=== PATIENT | male | born 1980 | race Caucasian/White ===

== ENCOUNTER 2017-02-10 03:42 | Emergency (ER) | payer MEDICAID, OTHER ==
[2017-02-10 04:05] VITALS: BP 149/100
--- NOTE | 2017-02-11 08:56 | ER ---
DATE SEEN: 02/10/2017 TIME SEEN: The patient was seen at 0421 hours. CHIEF COMPLAINT: "I feel dizzy, woozy, mild left upper quadrant abdominal discomfort." No vomiting, diarrhea, fever, or recent cough. The patient has mild left flank pain, which is quite vague and left anterior upper abdominal discomfort, which also is vague. "I'm not feeling well." The patient was dropped off to ED for further evaluation by someone who drove away. The patient is a poor historian. He is mildly agitated and has difficulty with maintaining a cognitive thread of conversation. He is quite restless, cooperative, not abusive, not aggressive, not obnoxious or offensive. PHYSICAL EXAMINATION: HEENT: PERRLA intact. Eyes, 4 down to 3 mm. Hearing is intact. Pharynx without abnormality except mucosa is mildly dry. NECK: Supple. No thyromegaly or masses in the neck. No cervical adenopathy. LUNGS: Clear to auscultation. HEART: S1, S2. No murmur. ABDOMEN: Soft. No guarding. No rebound. VITAL SIGNS: Has mild tachycardia, heart rate 110, blood pressure 149/100, respirations 22, oxygen saturation 99%, and temperature 36.7 degrees centigrade. MUSCULOSKELETAL: The patient is somewhat asthenic. He has less subcutaneous fat. No needle douglass noted. No signs of inflammation, or signs of infection in the upper and lower extremities. No back pain. No hip or upper or lower extremity joint pain. DERM: No linear angiitis of the dermis. No rashes noted. LABORATORY DATA: Urine drug screen: Methamphetamine, MDMA , and marijuana noted. Glucose 133, otherwise automated chemistry is intact. CMP was normal except for mild elevation of reactive glucose 143, alkaline phosphatase 49. ASSESSMENT: Drug abuse. Agitation, "wooziness" tiredness, not feeling well secondary to methamphetamine, MDMA use and marijuana. The patient dismissed to follow up with doctor as needed, otherwise in a week. He was dropped off at the hospital, and consequently, he will need to go home by cab or other arrangements. /[id number] CHERELLE/MATTIE MAI
== END 2017-02-10 06:54 | disposition home or self-care (01) ==
LOC: FB.ED 03:42
DX: F19.10 Other psychoactive substance abuse, uncomplicated (principal); R45.1 Restlessness and agitation
CPT/HCPCS: 36415; 80053; 80305; 81001; 86140; 87040; 99284

== ENCOUNTER 2017-03-11 06:24 | Emergency (ER) | payer SELFPAY ==
[2017-03-11] MEDS ORDERED: Ketorolac 60 MG/2 ML SDV IM ONE (06:31)
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
[2017-03-11] MEDS ORDERED: HYDROmorphone 2 MG/ML SDV IM ONE (08:07)
[2017-03-11] MEDS ORDERED: Ondansetron 4 MG Tab.DIS PO PRN (08:12)
[2017-03-11 09:07] VITALS: BP 115/87
--- NOTE | 2017-03-11 11:24 | CR ---
INDICATION: Fall, complains of pain. RIGHT SHOULDER COMPLETE: Three views of the right shoulder were obtained and revealed what appears to be an acute oblique fracture through the distal portion of the mid shaft of the right clavicle with cranial angulation at the fracture site. This is a new finding compared with 01/02/2017 chest x-ray. No other bone or joint abnormality was identified. Report was called to Rad[facility] in ER for Dr. Otto at 1033 hours, 03/11/2017. SERGEI
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
== END 2017-03-11 08:30 | disposition home or self-care (01) ==
LOC: FB.ED 06:24
DX: S42.021A Displaced fracture of shaft of right clavicle, initial encounter for closed fracture (principal); F19.10 Other psychoactive substance abuse, uncomplicated; F60.9 Personality disorder, unspecified; H54.7 Unspecified visual loss; R68.3 Clubbing of fingers; J44.9 Chronic obstructive pulmonary disease, unspecified; F17.200 Nicotine dependence, unspecified, uncomplicated; F12.20 Cannabis dependence, uncomplicated; F15.20 Other stimulant dependence, uncomplicated; J45.909 Unspecified asthma, uncomplicated; Z88.0 Allergy status to penicillin; Z98.890 Other specified postprocedural states; V19.9XXA Pedal cyclist (driver) (passenger) injured in unspecified traffic accident, initial encounter
CPT/HCPCS: 73030; 96372; 99283; A9270; J1170; J1885

== ENCOUNTER 2017-03-15 17:20 | Emergency (ER) | payer SELFPAY ==
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
[2017-03-15 17:57] VITALS: BP 132/78
[2017-03-15 18:29] LABS: ACETAMINOPHEN < 10 ug/mL (10-30)
== END 2017-03-15 19:30 | disposition home or self-care (01) ==
LOC: FB.ED 17:20
DX: T52.8X1A Toxic effect of other organic solvents, accidental (unintentional), initial encounter (principal); E86.0 Dehydration; F17.210 Nicotine dependence, cigarettes, uncomplicated; Z88.0 Allergy status to penicillin; Z79.82 Long term (current) use of aspirin; Z79.899 Other long term (current) drug therapy
CPT/HCPCS: 36415; 80053; 85025; 99284; G0480

== ENCOUNTER 2023-04-07 23:15 | Emergency (ER) | payer MEDICAID ==
[2023-04-07] MEDS: Albuterol/Ipratropium 3.0-0.5 MG/3 ML Neb Soln NEB ONE (23:34)
[2023-04-07] MEDS: methylPREDNISolone Acetate 40 MG/ML SDV IM ONE (23:40)
[2023-04-08 00:05] VITALS: BP 119/79; PULSE 118
== END 2023-04-07 23:51 ==
LOC: FB.ED 23:15
DX: J45.901 Unspecified asthma with (acute) exacerbation (principal); Z88.0 Allergy status to penicillin; Z79.899 Other long term (current) drug therapy
CPT/HCPCS: 94640; 96372; 99285; J1030; J7620

== ENCOUNTER 2023-07-23 20:51 | Emergency (ER) | payer MEDICAID ==
[2023-07-23 21:12] VITALS: BP 153/102; PULSE 119
[2023-07-23] MEDS: Sodium Chloride 0.9% 1,000 ML IV ONE (21:30)
[2023-07-23] MEDS: Ondansetron 4 MG/2 ML SDV IVPUSH ONE (21:30)
[2023-07-23 21:46] LABS: BASOPHILS ABSOLUTE AUTO 0.1 x10-3/uL (0.0-0.3); BASOPHILS PERCENT AUTO 1.1 % (0.3-3.8); EOSINOPHILS ABSOLUTE AUTO 0.3 x10-3/uL (0.0-0.6); EOSINOPHILS PERCENT AUTO 5.9 % (0.1-6.8); HEMATOCRIT 40.9 % (38.3-50.1); HEMOGLOBIN 13.9 g/dL (12.9-17.7); LYMPHOCYTES ABSOLUTE AUTO 1.4 x10-3/uL (0.5-4.5); LYMPHOCYTES PERCENT AUTO 24.9 % (15.8-45.3); MEAN CORPUSCULAR HEMOGLOBIN 31.2 pg (27.0-33.3); MEAN CORPUSCULAR VOLUME 91.6 fL (80.8-98.7); MONOCYTES ABSOLUTE AUTO 0.7 x10-3/uL (0.0-1.2); MONOCYTES PERCENT AUTO 11.7 % (5.5-15.2); NEUTROPHILS ABSOLUTE AUTO 3.2 x10-3/uL (1.7-6.9); NEUTROPHILS PERCENT AUTO 56.4 % (40.3-71.8); PLATELET COUNT,PLT 302 x10(3)uL (117-477); RED BLOOD CELL COUNT 4.47 x10(6)uL (3.90-5.90); RED CELL DISTRIBUTION WIDTH 14.4 % (12.4-15.0); WHITE BLOOD CELL COUNT,WBC 5.7 x10-3/uL (3.2-10.1)
[2023-07-23 21:50] LABS: BLOOD UREA NITROGEN,BUN 12 mg/dL (7-18); CARBON DIOXIDE,CO2 30 mmol/L (21-32); CHLORIDE,CL 102 mmol/L (100-110); CREATININE 1.2 mg/dL (0.70-1.30); EST CRCL DRUG DOSING (CG) 80.19 mL/min; ESTIMATED GFR 77 mL/min (>60); GLUCOSE RANDOM 106 mg/dL (80-116); SODIUM,NA 138 mmol/L (135-145)
[2023-07-23 21:55] LABS: ALANINE AMINOTRANSFERASE,ALT 29 U/L (12-36); ALBUMIN 3.5 g/dL (3.5-5.2); ALKALINE PHOSPHATASE 113 IU/L (56-112); ASPARTATE AMNIOTRANSFERASE,AST 26 IU/L (5-25); BILIRUBIN TOTAL 0.2 mg/dL (0.1-1.3); MAGNESIUM 1.7 mg/dL (1.8-2.5)
[2023-07-23 21:59] LABS: BILIRUBIN,URINE NEGATIVE (NEGATIVE); GLUCOSE,URINE NORMAL (NORMAL); KETONES,URINE NEGATIVE (NEGATIVE); LEUKOCYTE ESTERASE,URINE NEGATIVE (NEGATIVE); NITRITE,URINE NEGATIVE (NEGATIVE); OCCULT BLOOD,URINE NEGATIVE (NEGATIVE); PROTEIN,URINE NEGATIVE (NEGATIVE); UROBILINOGEN,URINE NORMAL (NEGATIVE)
[2023-07-23 22:02] LABS: APPEARANCE,URINE CLEAR (CLEAR); BACTERIA,URINE OCCASIONAL (NS); COLOR,URINE YELLOW (YELLOW); RBC,URINE NOT SEEN (0-5); SQUAMOUS EPITHELIAL CELLS,UR OCCASIONAL (NS,R,O); WBC,URINE 0-5 (0-5)
[2023-07-23 22:03] LABS: AMPHETAMINES SCREEN, URINE NEGATIVE (NEGATIVE); BARBITURATE SCREEN,URINE NEGATIVE (NEGATIVE); BENZODIAZEPINES SCREEN,URINE NEGATIVE (NEGATIVE); METHADONE SCREEN, URINE NEGATIVE (NEGATIVE); METHAMPHETAMINE SCREEN, URINE NEGATIVE (NEGATIVE); OXYCODONE SCREEN,URINE NEGATIVE (NEGATIVE); PROPOXYPHENE SCREEN,URINE NEGATIVE (NEGATIVE); THC SCREEN,URINE NEGATIVE (NEGATIVE)
[2023-07-23 22:04] LABS: BUPRENORPHINE SCREEN,URINE NEGATIVE (NEGATIVE)
[2023-07-23] MEDS: Iopamidol 755 Mg/ML 100 ML Bottle IV ONE (23:27)
== END 2023-07-23 23:27 | disposition left against medical advice (07) ==
LOC: FB.ED 20:51
DX: R07.89 Other chest pain (principal); R11.2 Nausea with vomiting, unspecified; E86.0 Dehydration; J45.909 Unspecified asthma, uncomplicated; R79.1 Abnormal coagulation profile; Z88.0 Allergy status to penicillin; Z79.82 Long term (current) use of aspirin; F17.210 Nicotine dependence, cigarettes, uncomplicated
CPT/HCPCS: 36415; 80053; 80307; 81001; 83735; 84484; 85025; 85379; 86140; 93005; 96361; 96374; 99285; J2405; J7030

== ENCOUNTER 2023-07-29 02:29 | Emergency (ER) | payer BC, MEDICAID ==
[2023-07-29] MEDS ORDERED: methylPREDNISolone Sodium Succinate 125 MG/2 ML SDV IVPUSH ONE (02:50)
[2023-07-29] MEDS ORDERED: Prochlorperazine 10 MG/2 ML SDV IVPUSH ONE (02:50)
[2023-07-29] MEDS ORDERED: Morphine 4 MG/ML VIAL IVPUSH ONE (02:50)
[2023-07-29] MEDS ORDERED: Sodium Chloride 0.9% 1,000 ML IV ONE (02:50)
[2023-07-29] MEDS ORDERED: Pantoprazole 40 MG Vial IVPUSH ONE (02:50)
[2023-07-29] MEDS ORDERED: Albuterol/Ipratropium 3.0-0.5 MG/3 ML Neb Soln NEB ONE (02:50)
[2023-07-29 03:20] LABS: BLOOD UREA NITROGEN,BUN 15 mg/dL (7-18); BUN/CREATININE RATIO 12.5 (9-20); CALCIUM 10.7 mg/dL (8.6-10.2); CARBON DIOXIDE,CO2 26 mmol/L (21-32); CHLORIDE,CL 100 mmol/L (100-110); CREATININE 1.2 mg/dL (0.70-1.30); ESTIMATED GFR 77 mL/min (>60); GLUCOSE RANDOM 110 mg/dL (80-116); POTASSIUM,K 3.5 mmol/L (3.5-5.3); SODIUM,NA 137 mmol/L (135-145)
[2023-07-29 03:24] LABS: BASOPHILS ABSOLUTE AUTO 0.1 x10-3/uL (0.0-0.3); BASOPHILS PERCENT AUTO 0.6 % (0.3-3.8); EOSINOPHILS ABSOLUTE AUTO 0.6 x10-3/uL (0.0-0.6); EOSINOPHILS PERCENT AUTO 5.1 % (0.1-6.8); HEMATOCRIT 46.4 % (38.3-50.1); HEMOGLOBIN 16.1 g/dL (12.9-17.7); LYMPHOCYTES ABSOLUTE AUTO 2.5 x10-3/uL (0.5-4.5); MEAN CORPUSCULAR HEMOGLOBIN 31.4 pg (27.0-33.3); MEAN CORPUSCULAR HGB CONC 34.8 g/dL (28.7-35.3); MEAN CORPUSCULAR VOLUME 90.3 fL (80.8-98.7); MEAN PLATELET VOLUME 8.2 fL (6.7-11.0); MONOCYTES ABSOLUTE AUTO 0.9 x10-3/uL (0.0-1.2); MONOCYTES PERCENT AUTO 7.2 % (5.5-15.2); NEUTROPHILS ABSOLUTE AUTO 7.9 x10-3/uL (1.7-6.9); NEUTROPHILS PERCENT AUTO 66.1 % (40.3-71.8); PLATELET COUNT,PLT 435 x10(3)uL (117-477); RED BLOOD CELL COUNT 5.14 x10(6)uL (3.90-5.90); RED CELL DISTRIBUTION WIDTH 14.7 % (12.4-15.0)
[2023-07-29 03:28] LABS: A/G RATIO 1.2; ALANINE AMINOTRANSFERASE,ALT 25 U/L (12-36); ALBUMIN 4.4 g/dL (3.5-5.2); ALKALINE PHOSPHATASE 122 IU/L (56-112); ASPARTATE AMNIOTRANSFERASE,AST 24 IU/L (5-25); BILIRUBIN TOTAL 0.4 mg/dL (0.1-1.3); PROTEIN TOTAL,TP 8.2 g/dL (6.0-8.0)
[2023-07-29] MEDS ORDERED: Iopamidol 755 Mg/ML 100 ML Bottle IV ONE (04:20)
[2023-07-29 05:19] VITALS: BP 159/96; PULSE 113
== END 2023-07-29 05:17 | disposition home or self-care (01) ==
LOC: FB.ED 02:29
DX: K29.20 Alcoholic gastritis without bleeding (principal); K44.9 Diaphragmatic hernia without obstruction or gangrene; K40.90 Unilateral inguinal hernia, without obstruction or gangrene, not specified as recurrent; F10.20 Alcohol dependence, uncomplicated; F17.210 Nicotine dependence, cigarettes, uncomplicated; J45.909 Unspecified asthma, uncomplicated; K21.9 Gastro-esophageal reflux disease without esophagitis; Z88.0 Allergy status to penicillin
CPT/HCPCS: 36415; 74177; 80053; 80307; 82150; 83690; 85025; 94640; 96361; 96374; 96375; 99284; C9113; J0780; J2270; J2930; J7030; Q9967; J7620

== ENCOUNTER 2023-07-29 20:17 | Emergency (ER) | payer MEDICAID ==
[2023-07-29] MEDS: Ondansetron 4 MG Tab.DIS PO ONE (20:34)
[2023-07-29 20:38] VITALS: BP 160/99; PULSE 115
== END 2023-07-29 21:16 | disposition home or self-care (01) ==
LOC: FB.ED 20:17
DX: K27.9 Peptic ulcer, site unspecified, unspecified as acute or chronic, without hemorrhage or perforation (principal); K29.70 Gastritis, unspecified, without bleeding; K21.9 Gastro-esophageal reflux disease without esophagitis; Z88.0 Allergy status to penicillin; Z79.82 Long term (current) use of aspirin; Z79.899 Other long term (current) drug therapy; Z72.0 Tobacco use
CPT/HCPCS: 99283; Q0162